=== PATIENT | male | born 1985 | race Caucasian/White ===

== ENCOUNTER 2022-03-23 16:28 | Emergency (ER) | payer BC, SELFPAY ==
--- NOTE | 2022-03-23 16:32 | ED.URI ---
HPI - URI/Sore Throat General Chief Complaint: Upper Respiratory Infection Stated Complaint: swollen tonsil Time Seen by Provider: 03/23/22 16:44 Source: patient and RN notes reviewed Mode of arrival: ambulatory Limitations: no limitations History of Present Illness HPI Narrative: 36-year-old male presents with sore throat, swollen tonsils, swollen tongue. Reports since Thursday he has been having a swollen tongue, burning and painful throat with a swollen tonsil. Reports he has been taking Benadryl every 6 hours to help his swollen tongue. Reports when the Benadryl wears off his tongue feels swollen again. He reports a feeling of a swollen lip. He denies dyspnea, fever, nausea, vomiting, fever. Denies rash. He denies any known triggers other than penicillin for allergies. Reports he has not had a penicillin recently MD elicited complaint: sore throat Related Data Home Medications Medication Instructions Recorded Confirmed phentermine 37.5 mg capsule 37.5 mg PO DAILY 03/23/22 03/23/22 Allergies Allergy/AdvReac Type Severity Reaction Status Date / Time Penicillins Allergy Unknown Hives Verified 03/23/22 16:44 Review of Systems Review of Systems: CONSTITUTIONAL: Denies malaise, chills, sweats, or fever. EYES: Denies visual changes, redness, or discharge. ENT: Denies rhinorrhea, congestion, sinus pain, otalgia. Reports sore, burning throat, intermittent swollen tongue CARDIOVASCULAR: Denies chest pain, palpitations, or edema. RESPIRATORY: Denies cough. Denies dyspnea. GASTROINTESTINAL: Denies abdominal pain, nausea, vomiting, diarrhea SKIN: Denies rash or itching. MUSCULOSKELETAL: Denies myalgia. NEUROLOGIC: Denies headache. All systems reviewed & are unremarkable except as noted in HPI and below PMFSH Social History Social History Smoking status: Never smoker Alcohol intake: never Comments At time of signature, agree with nursing past medical, surgical, social and family history. There is no relevant family history pertinent to the presenting complaint Exam Narrative: GENERAL: Well-appearing, well-nourished, and in no acute distress. HEAD: Normocephalic EYES: PERRLA, conjunctivae clear ENT: Nares clear, no discharge. Mucous membranes moist. TM pearly acosta with dull light reflex bilaterally; no tragal tenderness. Oropharynx erythematous without lesions. Tonsils enlarged 2+ and without exudate, no drooling, no hoarseness, no trismus, uvula midline. NECK: Supple. No lymphadenopathy CHEST: Clear to auscultation, breath sounds equal. No wheezing, rhonchi, rales, or stridor. No respiratory distress, speaks in full sentences. HEART: Regular rate and rhythm. No murmur heard. SKIN: Warm, dry, no rash. NEURO: Alert and oriented x3. PSYCH: Normal mood and affect Course Course Emergency Course: Patient is aware of diagnosis, understands and agrees to treatment plan. Anticipatory guidance given. Patient agrees to follow-up as directed and is aware of reasons to seek care at the emergency department. Portions of this record may have been created with voice recognition software Level of Care: Express Care Visit Reevaluation(s) Reevaluation #1: Patient reports improvement in feeling of tongue swelling and swollen tonsil with Solu-Medrol Date: 03/23/22 Time: 17:20 Vital Signs Vital signs: Reviewed. MDM - URI/Sore Throat MDM Narrative Medical decision making narrative: Differential diagnosis considered: Edmondson virus, strep pharyngitis, allergic rhinitis, upper respiratory tract infection, sinusitis, rhinosinusitis, nasopharyngitis. viral pharyngitis, otitis media, otitis externa, pneumonia, bronchitis, viral cough syndrome, viral syndrome, and influenza. Exam findings show no acute concerns or changes; patient is non-toxic appearing and is in no distress. Patient is appropriate for outpatient treatment and follow-up. Lab Data Attestation: I reviewed the patient's lab results. Critical Care Time Critical Car
[2022-03-23 16:36] VITALS: BP 144/90; PULSE 65; RESP 14; TEMP 37; O2SAT 99
[2022-03-23 16:45] VITALS: BP 144/90; PULSE 65; RESP 14; TEMP 37; O2SAT 99
[2022-03-23] MEDS: methylPREDNISolone SOD SUCC 125 MG VIAL IM (16:54)
== END 2022-03-23 17:17 | disposition home or self-care (01) ==
PROVIDERS: Emergency Provider Nurse Practitioner; PCP Internal Medicine
DX: J02.9 Acute pharyngitis, unspecified (principal); Z20.822 Contact with and (suspected) exposure to COVID-19
CPT/HCPCS: 87081; 87426; 87880; 96372; 99213; C9803; G0463; J2930

== ENCOUNTER 2023-04-04 09:43 | Emergency (ER) | payer BC, SELFPAY ==
--- NOTE | 2023-04-04 09:55 | ED.URI ---
HPI - URI/Sore Throat General Chief Complaint: Upper Respiratory Infection Stated Complaint: sinus pressure Time Seen by Provider: 04/04/23 09:55 Source: patient and RN notes reviewed History of Present Illness HPI Narrative: Patient is a 37-year-old male who presents to urgent care with complaints of frontal sinus pressure, eye drainage, and redness of the left eye. Patient states he woke up with midnight which is symptoms and was unable to see due to the eye matting in order to treat himself. Patient has not taken anything this morning for his symptoms. Denies any fevers. No other acute complaints. No acute distress noted. Patient aware of plan of care. Some parts of this dictation were generated by voice recognition software and may contain typographical and/or grammatical inaccuracies. Related Data Allergies Allergy/AdvReac Type Severity Reaction Status Date / Time Penicillins Allergy Unknown Hives Verified 03/23/22 16:44 Review of Systems Review of Systems: CONSTITUTIONAL: Denies fever, chills, or sweats. EYES: Reports of redness, drainage from bilateral eyes, worse on the left ENT: Reports of sinus congestion and pressure CARDIOVASCULAR: Denies chest pain, palpitations, or edema. RESPIRATORY: Denies cough or dyspnea. GASTROINTESTINAL: Denies abdominal pain, nausea, vomiting, or diarrhea. GENITOURINARY: Denies dysuria or hematuria. SKIN: Denies rash or itching. MUSCULOSKELETAL: Denies back pain, joint pain, or myalgia. NEUROLOGIC: Denies headache, numbness, or weakness. All other systems reviewed are negative, except as documented in HPI. PMFSH Social History Social History Smoking status: Never smoker Alcohol intake: never Comments At the time of my signature, I reviewed and agree with the nursing past medical, surgical, social, and family history. There is no relevant family history pertinent to the patient complaint. Exam Narrative: GENERAL: This is a well-nourished, well-developed patient, in no apparent distress. HEAD: normocephalic, atraumatic. Reports of frontal sinus tenderness EYES: PERRL. Mild erythema to the left sclera with moderate injectable and mild edema to the left upper eyelid. Drainage bilateral. Vision is grossly intact. EARS: External ears normal, auditory canals clear and without drainage, TMs normal without perforation. Hearing grossly intact. NOSE: External nose normal with no obvious nasal discharge, nares without redness, no rhinorrhea. THROAT: Mucous membranes moist, moderate postnasal drainage NECK: Neck supple, non-tender without lymphadenopathy CARDIOVASCULAR: Regular rate and rhythm RESPIRATORY: Clear to auscultation. Breath sounds equal bilaterally. No wheezes, rales, or rhonchi. SKIN: warm, intact with no suspicious lesions or rash, good texture and turgor. NEURO: awake, alert, and oriented to person, place and time. There were no obvious focal neurologic abnormalities. EXTREMITIES: No clubbing, cyanosis, or edema. Course Course Level of Care: Express Care Visit Vital Signs Vital signs: Vital Signs Temperature 98.5 F 04/04/23 10:07 Pulse Rate 75 04/04/23 10:07 Respiratory Rate 16 04/04/23 10:07 Blood Pressure 127/82 04/04/23 10:07 Pulse Oximetry 75 L 04/04/23 10:07 Oxygen Delivery Room Air 04/04/23 10:07 Temperature 98.5 F 04/04/23 10:07 Pulse Rate 75 04/04/23 10:07 Respiratory Rate 16 04/04/23 10:07 Blood Pressure 127/82 04/04/23 10:07 Pulse Oximetry 75 L 04/04/23 10:07 Oxygen Delivery Room Air 04/04/23 10:07 Reviewed MDM - URI/Sore Throat MDM Narrative Medical decision making narrative: Advised patient to use a daily antihistamine such as Zyrtec or Claritin. Would recommend Benadryl now. Advised patient to use a warm compress to bilateral eyes for drainage and discomfort. Use drops bilaterally, wiping the applicator tip with each application. Follow-up with your PCP within 2-5 days or for worsening sympt
[2023-04-04 10:07] VITALS: BP 127/82; PULSE 75; RESP 16; TEMP 36.9; O2SAT 75
== END 2023-04-04 10:20 | disposition home or self-care (01) ==
PROVIDERS: Emergency Provider Nurse Practitioner Family; PCP Family Medicine
DX: H10.9 Unspecified conjunctivitis (principal)
CPT/HCPCS: 99213; G0463

== ENCOUNTER 2024-05-08 17:14 | Emergency (ER) | payer BC, SELFPAY ==
[2024-05-08 17:20] VITALS: BP 154/92; PULSE 94; RESP 16; TEMP 36.5; O2SAT 99
--- NOTE | 2024-05-08 18:20 | ED.GENADULT ---
HPI - General Adult General Chief complaint: Eye Problems Stated complaint: Right Eye Problem Source: patient Mode of arrival: ambulatory Limitations: no limitations History of Present Illness HPI narrative: Pt presents for evaluation of itching and redness to the right periorbital region. Symptom onset two weeks ago. He tried taking OTC oral allergy medications without improvement. He also had some leftover bacitracin polymyxin from left sided conjunctivitis a few weeks ago. Medication was ineffective despite 10 doses of medication. He contacted his primary care provider's office and received a prescription for azithromycin. Medication was ineffective. He reports tearing from the right eye without redness. Denies any visual disturbance or pain in the globe. He states that the redness and pruritus is limited to the skin. He does not were glasses or contacts. He has not been putting any new topical products on his face. Related Data Allergies Allergy/AdvReac Type Severity Reaction Status Date / Time Penicillins Allergy Unknown Hives Verified 03/23/22 16:44 Review of Systems Review of Systems: CONSTITUTIONAL: Denies fever, chills, or sweats. EYES: Reports tearing from the right eye without visual changes. Denies redness of the right eye. ENT: Denies rhinorrhea, congestion, sore throat, or otalgia. CARDIOVASCULAR: Denies chest pain, palpitations, or edema. RESPIRATORY: Denies cough or dyspnea. GASTROINTESTINAL: Denies abdominal pain, nausea, vomiting, or diarrhea. GENITOURINARY: Denies dysuria or hematuria. SKIN: Reports redness and itching to the skin of the right periorbital region. MUSCULOSKELETAL: Denies back pain, joint pain, or myalgia. NEUROLOGIC: Denies headache, numbness, dizziness, or weakness. PSYCHIATRIC: Denies anxiety or depression. [facility] Past Medical History Medical History No pertinent past medical history Surgical History Surgical History No pertinent past surgical history Family History Family History (Updated 05/08/24 @ 18:24 by LUIS Ramos, AILEEN) Mother Family history non-contributory Social History Social History Smoking status: Never smoker Alcohol intake: never Substance use: never Living arrangements: with family Gender identity (if verbalized by the patient): Male Spiritual care concerns: No Exam Narrative: GENERAL: Well-appearing, well-nourished, and in no acute distress. HEAD: Normocephalic, atraumatic. EYES: PERRLA and EOMI. No conjunctival injection. There is tearing noted from the right eye. There is no dye uptake noted with fluorescein stain and Wood's lamp evaluation ENT: Nares clear, no rhinorrhea or epistaxis. Mucous membranes moist. Oropharynx without tonsillar hypertrophy exudate or other lesions. Bilateral TMs pearly acosta nonbulging NECK: Supple. No adenopathy or masses. No carotid bruits or JVD CHEST: Clear to auscultation. No respiratory distress. No wheezes rales or rhonchi HEART: Regular rate and rhythm. No murmur heard. Normal peripheral pulses. ABDOMEN: Soft, nontender, nondistended, normal active bowel sounds. EXTREMITIES: Normal range of motion. No edema. SKIN: There is erythema to the right upper and lower eyelids and right infraorbital region NEURO: No focal deficits. Alert and oriented x3. PSYCH: Normal mood and affect. Course Course Emergency Course: This is a 38-year-old male who presented for evaluation of itching and redness to the right periorbital region. He had no dye uptake on exam and did not respond to ophthalmic antibiotic preparation. This appears to be limited to the skin. Will treat with prednisone which he has tolerated well in the past, Vistaril, and will also cover with a course of doxycycline. Increase hydration. Follow u
== END 2024-05-08 18:28 | disposition home or self-care (01) ==
PROVIDERS: Emergency Provider Family Medicine; PCP Family Medicine
DX: L30.9 Dermatitis, unspecified (principal)
CPT/HCPCS: 99213; A9270; G0463